=== PATIENT | female | born 1995 | race Hispanic/Latino ===

== ENCOUNTER 2021-06-19 19:46 | Emergency (ER) | payer OTHER ==
[2021-06-19 21:13] LABS: #Basophils 0.1 thou/uL (0.0-0.2); #Eosinphils 0.8 thou/uL (0.0-0.7); #Lymphocytes 3.4 thou/uL (1.20-3.40); #Monocytes 0.4 thou/uL (0.11-0.59); #Neutrophils 5.5 thou/uL (1.40-6.50); %Basophils 0.7 % (0.0-1.0); %Eosinophils 8.2 % (0.0-10.0); %Lymphocytes 33.6 % (21.0-51.0); %Monocytes 3.8 % (0.0-10.0); %Neutrophils 53.7 % (42.0-75.0); Hemoglobin 16.5 g/dL (12.0-16.0); Mean Corpuscular HGB CONC 32.3 g/dL (32.0-36.0); Mean Corpuscular Hemoglobin 30.7 pg (27.0-31.0); Mean Corpuscular Volume 94.8 fL (78.0-98.0); Mean Platelet Volume 7.3 fL (7.4-10.4); Platelet Count 313 thou/uL (130-400); RBC Distribution Width 12.4 % (11.5-14.5); Red Blood Cell (RBC) Count 5.38 mill/uL (4.20-5.40); White Blood Cell (WBC) Count 10.2 thou/uL (4.8-10.8)
[2021-06-19 21:26] LABS: ALT (SGPT) Less than 7 U/L (8-55); AST (SGOT) 6 U/L (5-34); Albumin 3.7 g/dL (3.5-5.0); Alkaline Phosphatase 64 U/L (40-110); Anion Gap 8 mmol/L (10-20); BUN (Urea Nitrogen) 9 mg/dL (7.0-18.7); Bilirubin, Total 0.2 mg/dL (0.2-1.2); Calc. Creatinine Clearance 0 mL/min (70-130); Calcium 10.3 mg/dL (7.8-10.44); Carbon Dioxide 25 mmol/L (22-29); Chloride 114 mmol/L (98-107); Glucose 93 mg/dL (70-105); Potassium 3.9 mmol/L (3.5-5.1); Protein, Total 7.7 g/dL (6.0-8.3); Sodium 143 mmol/L (136-145)
== END 2021-06-19 21:45 | disposition home or self-care (01) ==
LOC: ERS 19:46
DX: R56.9 Unspecified convulsions (principal)
CPT/HCPCS: 36415; 71045; 80053; 85025

== ENCOUNTER 2024-12-01 15:15 | Outpatient (CLI) | payer BC, OTHER | END 2024-12-01 15:16 | disposition home or self-care (01) | LOC: SCSRAD 15:15 | PROVIDERS: ATTEND Nurse Practitioner Family | DX: J18.9 Pneumonia, unspecified organism (principal) | CPT/HCPCS: 71046 ==

== ENCOUNTER 2024-12-07 07:30 | Outpatient (CLI) | payer BC, OTHER | END 2024-12-07 07:31 | disposition home or self-care (01) | LOC: SCSRAD 07:30 | PROVIDERS: ATTEND Internal Medicine | DX: J18.9 Pneumonia, unspecified organism (principal); J98.11 Atelectasis; R91.8 Other nonspecific abnormal finding of lung field | CPT/HCPCS: 71046 ==

== ENCOUNTER 2025-01-30 12:21 | Outpatient (CLI) | payer BC, OTHER | END 2025-01-30 12:22 | disposition home or self-care (01) | LOC: SCSRAD 12:21 | PROVIDERS: ATTEND Family Medicine | DX: J22 Unspecified acute lower respiratory infection (principal); R91.8 Other nonspecific abnormal finding of lung field | CPT/HCPCS: 71046 ==

== ENCOUNTER 2025-03-13 22:53 | Inpatient (IN) | payer BC, OTHER ==
[~2025-03-13 22:53] MED LIST: Iopamidol-370 76% 500 ML MDV (1 ML CHARGE) ONE
[2025-03-13 23:33] LABS: #Basophils 0.08 10x3/uL (0.0-0.2); #Eosinophils 0.17 10x3/uL (0.0-0.7); #Monocytes 0.50 10x3/uL (0.11-0.59); #Neutrophils 14.22 10x3/uL (1.40-6.50); %Basophils 0.4 % (0.0-1.0); %Eosinophils 0.9 % (0.0-10.0); %Lymphocytes 17.6 % (21.0-51.0); %Monocytes 2.7 % (0.0-10.0); %Neutrophils 78.1 % (42.0-75.0); Hematocrit 45.3 % (36.0-47.0); Hemoglobin 14.1 g/dL (12.0-16.0); Mean Corpuscular Hemoglobin 28.2 pg (27.0-31.0); Mean Corpuscular Volume 90.6 fL (78.0-98.0); Platelet Count 336 10x3/uL (130-400); Red Blood Cell (RBC) Count 5.00 mill/uL (4.20-5.40); White Blood Cell (WBC) Count 18.23 10x3/uL (4.8-10.8)
[2025-03-13] MEDS ORDERED: Acetaminophen 325 MG (10.15 ML) UDCUP ONE (23:37)
[2025-03-13 23:44] LABS: Actual Bicarbonate (HCO3v) 21.1 mEq/L (22-28); Base Excess -5.2 mEq/L (-2.0 to +3.0); Calcium, Ionized (venous) 1.36 mmol/L (1.16-1.32); Chloride (VBG) 114 mmol/L (98-106); Hematocrit-VBG 46 % (36.0-47.0); Hemoglobin (Hb) 15.5 g/dL (11.7-15.5); Potassium (VBG) 3.11 mmol/L (3.70-5.30); Sodium 151 mmol/L (133-146)
[2025-03-13 23:47] LABS: ALT (SGPT) 8 U/L (Less than 34); AST (SGOT) 16 U/L (11-34); Albumin 3.5 g/dL (3.1-4.5); Alkaline Phosphatase 72 U/L (40-110); Anion Gap 16 mmol/L (10-20); BUN (Urea Nitrogen) 16 mg/dL (7.0-18.7); Bilirubin, Total 0.4 mg/dL (0.3-1.2); Calc. Creatinine Clearance 0 mL/min (70-130); Calcium 10.1 mg/dL (7.8-10.44); Carbon Dioxide 21 mmol/L (22-29); Chloride 114 mmol/L (98-107); Globulin 4.5 g/dL (2.4-3.5); Glucose 106 mg/dL (70-105); Potassium 2.9 mmol/L (3.5-5.1); Sodium 148 mmol/L (136-145)
[2025-03-13] MEDS ORDERED: cefTRIAXone (ROCEPHIN) 2 GM VIAL ONE (23:57)
[2025-03-13] MEDS ORDERED: Vancomycin 1 GM/200 ML (FROZEN) BAG ONE (23:57)
[2025-03-14 00:09] LABS: Lipase 30 U/L (8-78); Magnesium 2.0 mg/dL (1.6-2.6)
[2025-03-14] MEDS ORDERED: Potassium Chloride 20 MEQ (100 mL) BAG ONE (02:16)
[2025-03-14] MEDS ORDERED: Pantoprazole 40 MG VIAL ONE (02:18)
[2025-03-14] MEDS ORDERED: Acetaminophen 325 MG TAB PO PRN (03:31)
[2025-03-14] MEDS ORDERED: Ondansetron PF 4 MG/2 ML Vial IVP PRN (03:31)
[2025-03-14 03:40] LABS: Bacteria/HPF None Seen HPF (None Seen); CAUTI Indications for Culture Fever or rigors; Glucose, Urine (Dipstick) Normal (Negative); Leukocyte Negative Leu/uL (Negative); Protein, Urine (Dipstick) 20 mg/dL (Neg-Trace); RBC/HPF Greater than 50 HPF (0-3); WBC/HPF None Seen HPF (0-3)
[2025-03-14] MEDS: Potassium Chloride 20 MEQ in Premix 1 BAG IVPB SCH (04:26)
[2025-03-14 04:30] LABS: Specific Gravity, Urine Greater than 1.036 (1.002-1.036); Urine Culture Reflex No No
[2025-03-14] MEDS: Pantoprazole 40 MG VIAL IVP SCH ×2 (09:47→16:18)
[2025-03-14 13:20] LABS: Anion Gap 9 mmol/L (10-20); BUN (Urea Nitrogen) 10 mg/dL (7.0-18.7); Calc. Creatinine Clearance 0 mL/min (70-130); Calcium 9.0 mg/dL (7.8-10.44); Carbon Dioxide 18 mmol/L (22-29); Chloride 120 mmol/L (98-107); Glucose 86 mg/dL (70-105); Potassium 3.7 mmol/L (3.5-5.1); Sodium 143 mmol/L (136-145)
[2025-03-14] MEDS: Zonisamide 100 MG CAP PO SCH ×3 (13:26→21:35)
[2025-03-14 13:48] VITALS: BMI 18.4
[2025-03-14] MEDS: Sodium Chloride 3% (15 ML) NEB NEB SCH (18:29)
[2025-03-14] MEDS: clonazePAM 0.5 MG TAB PO SCH (21:35)
[2025-03-15 05:44] LABS: #Basophils 0.04 10x3/uL (0.0-0.2); #Eosinophils 1.17 10x3/uL (0.0-0.7); #Monocytes 0.43 10x3/uL (0.11-0.59); #Neutrophils 7.34 10x3/uL (1.40-6.50); %Basophils 0.3 % (0.0-1.0); %Eosinophils 10.1 % (0.0-10.0); %Lymphocytes 22.0 % (21.0-51.0); %Monocytes 3.7 % (0.0-10.0); %Neutrophils 63.5 % (42.0-75.0); Hematocrit 34.5 % (36.0-47.0); Hemoglobin 10.7 g/dL (12.0-16.0); Mean Corpuscular Hemoglobin 28.7 pg (27.0-31.0); Mean Corpuscular Volume 92.5 fL (78.0-98.0); Platelet Count 231 10x3/uL (130-400); Red Blood Cell (RBC) Count 3.73 mill/uL (4.20-5.40); White Blood Cell (WBC) Count 11.58 10x3/uL (4.8-10.8)
[2025-03-15 06:01] LABS: Anion Gap 8 mmol/L (10-20); BUN (Urea Nitrogen) 9 mg/dL (7.0-18.7); Calc. Creatinine Clearance 91 mL/min (70-130); Calcium 9.0 mg/dL (7.8-10.44); Carbon Dioxide 20 mmol/L (22-29); Chloride 119 mmol/L (98-107); Glucose 95 mg/dL (70-105); Magnesium 1.6 mg/dL (1.6-2.6); Potassium 3.5 mmol/L (3.5-5.1); Sodium 143 mmol/L (136-145)
[2025-03-15] MEDS: Multivit, Therapeutic 1 TAB PO SCH (08:43)
[2025-03-15] MEDS: FLU (Fluarix Triv) 25-26 (6MOS UP)/PF 45 MCG/0.5 ML Syringe IM ONE (08:44)
[2025-03-15] MEDS: PNEUMOC 20-VAL CONJ-DIP CRM/PF 0.5 ML SYRINGE IM ONE (08:45)
[2025-03-15] MEDS: DEXLANSOPRAZOLE PO SCH (15:40)
[2025-03-16 06:36] LABS: Albumin 2.2 g/dL (3.1-4.5); Anion Gap 5 mmol/L (10-20); BUN (Urea Nitrogen) Less than 4 mg/dL (7.0-18.7); BUN/Creatinine Ratio 6.52; Calc. Creatinine Clearance 93 mL/min (70-130); Calcium 8.5 mg/dL (7.8-10.44); Carbon Dioxide 18 mmol/L (22-29); Chloride 117 mmol/L (98-107); Glucose 89 mg/dL (70-105); Potassium 3.3 mmol/L (3.5-5.1); Sodium 137 mmol/L (136-145)
[2025-03-16 06:41] LABS: #Basophils 0.03 10x3/uL (0.0-0.2); #Eosinophils 1.10 10x3/uL (0.0-0.7); #Monocytes 0.52 10x3/uL (0.11-0.59); #Neutrophils 4.97 10x3/uL (1.40-6.50); %Basophils 0.3 % (0.0-1.0); %Eosinophils 11.5 % (0.0-10.0); %Lymphocytes 30.8 % (21.0-51.0); %Monocytes 5.4 % (0.0-10.0); %Neutrophils 51.8 % (42.0-75.0); Hematocrit 35.0 % (36.0-47.0); Hemoglobin 10.9 g/dL (12.0-16.0); Mean Corpuscular Hemoglobin 28.0 pg (27.0-31.0); Mean Corpuscular Volume 90.0 fL (78.0-98.0); Platelet Count 247 10x3/uL (130-400); Red Blood Cell (RBC) Count 3.89 mill/uL (4.20-5.40); White Blood Cell (WBC) Count 9.59 10x3/uL (4.8-10.8)
[2025-03-16 15:58] VITALS: BMI 18.4
[2025-03-17 00:43] VITALS: BP 75/51; TEMP 98
[2025-03-17 06:29] LABS: #Basophils 0.04 10x3/uL (0.0-0.2); #Eosinophils 1.07 10x3/uL (0.0-0.7); #Monocytes 0.35 10x3/uL (0.11-0.59); #Neutrophils 1.78 10x3/uL (1.40-6.50); %Basophils 0.6 % (0.0-1.0); %Eosinophils 17.3 % (0.0-10.0); %Lymphocytes 47.3 % (21.0-51.0); %Monocytes 5.7 % (0.0-10.0); %Neutrophils 28.9 % (42.0-75.0); Hematocrit 32.6 % (36.0-47.0); Hemoglobin 10.6 g/dL (12.0-16.0); Mean Corpuscular Hemoglobin 29.0 pg (27.0-31.0); Mean Corpuscular Volume 89.3 fL (78.0-98.0); Platelet Count 254 10x3/uL (130-400); Red Blood Cell (RBC) Count 3.65 mill/uL (4.20-5.40); White Blood Cell (WBC) Count 6.17 10x3/uL (4.8-10.8)
[2025-03-17 06:46] LABS: Albumin 2.0 g/dL (3.1-4.5); Anion Gap 10 mmol/L (10-20); BUN (Urea Nitrogen) 4 mg/dL (7.0-18.7); BUN/Creatinine Ratio 8.33; Calc. Creatinine Clearance 89 mL/min (70-130); Calcium 8.4 mg/dL (7.8-10.44); Carbon Dioxide 20 mmol/L (22-29); Chloride 117 mmol/L (98-107); Glucose 92 mg/dL (70-105); Potassium 3.1 mmol/L (3.5-5.1); Sodium 144 mmol/L (136-145)
[2025-03-17] MEDS: Potassium Chloride 20 MEQ in Premix 1 BAG IVPB SCH (07:52)
== END 2025-03-17 13:58 | disposition home or self-care (01) | DRG 871 ==
LOC: ERS 22:53 → PCU 03-14 02:47 → T4-A 03-14 21:34
PROVIDERS: ADMIT Internal Medicine; ATTEND Student in an Organized Health Care Education/Training Program
DX: A41.9 Sepsis, unspecified organism (principal); J69.0 Pneumonitis due to inhalation of food and vomit; J96.01 Acute respiratory failure with hypoxia; E87.0 Hyperosmolality and hypernatremia; Z88.8 Allergy status to other drugs, medicaments and biological substances; Z91.018 Allergy to other foods; Z98.890 Other specified postprocedural states; K20.90 Esophagitis, unspecified without bleeding; R11.10 Vomiting, unspecified; E87.6 Hypokalemia; R13.10 Dysphagia, unspecified; G40.909 Epilepsy, unspecified, not intractable, without status epilepticus; K59.00 Constipation, unspecified; G80.9 Cerebral palsy, unspecified; Z79.899 Other long term (current) drug therapy
CPT/HCPCS: 36415; 51701; 71045; 71275; 74177; 80048; 80053; 80069; 81001; 82805; 83605; 83690; 83735; 85025; 87040; 87086; 93005; 94640; 96365; 96367; 96375; J0696; J2470; J2543; J3373; J3480; Q9967